=== PATIENT | male | born 1970 | race Hispanic/Latino ===

== ENCOUNTER 2017-09-21 08:01 | Emergency (ER) | payer OTHER ==
[~2017-09-21] VITALS: Ht 162.6 cm; Wt 78.2 kg
[2017-09-21 10:17] VITALS: BP 130/74
== END 2017-09-21 09:54 | disposition home or self-care (01) ==
LOC: EME 08:01
PROC: 3E0234Z Introduction of Serum, Toxoid and Vaccine into Muscle, Percutaneous Approach (ICD-10-PCS; principal; 2017-09-21)
DX: H16.001 Unspecified corneal ulcer, right eye (principal); Z23 Encounter for immunization
CPT/HCPCS: 99281; 99283